=== PATIENT | male | born 1960 | race Caucasian/White ===

== ENCOUNTER 2020-08-19 23:50 | Emergency (ER) | payer OTHER ==
[2020-08-20 00:08] VITALS: TEMP 98.5; BMI 23.6
[2020-08-20 01:59] LABS: BASO % 0.9 % (0-2.0); EOS % 1.5 % (0-4.5); HEMATOCRIT 33.1 % (35.4-49); LYMPH % 18.1 % (8-40); MCH 27.6 pg (25.7-33.7); MCHC 33.2 g/dl (32.0-35.9); MEAN CELL VOLUME 83.1 fl (80-96); MEAN PLT VOLUME 10.1 fl (7.5-11.1); MONO % 12.3 % (3.8-10.2); NEUT % 67.2 % (42.8-82.8); PLATELET COUNT 140 K/MM3 (134-434); RBC 3.98 M/mm3 (4.00-5.60); RDW 13.6 % (11.9-15.9); WHITE BLOOD COUNT 5.2 K/mm3 (4.0-10.0)
[2020-08-20 02:03] LABS: INR 1.04 (0.83-1.09); POTASSIUM 4.1 mmol/L (3.5-5.1); PROTHROMBIN TIME (PATIENT) 12.8 SEC (9.7-13.0)
[2020-08-20 02:05] LABS: CALCIUM 8.9 mg/dL (8.5-10.1)
[2020-08-20 02:06] LABS: ALBUMIN 3.6 g/dl (3.4-5.0); BLOOD UREA NITROGEN 20.3 mg/dL (7-18)
[2020-08-20 02:09] LABS: CREATININE 1.1 mg/dL (0.55-1.3)
[2020-08-20 02:11] LABS: BILIRUBIN,TOTAL 0.3 mg/dL (0.2-1); TOT PROT 6.6 g/dl (6.4-8.2)
[2020-08-20 04:29] VITALS: BP 136/56; PULSE 54
== END 2020-08-20 04:29 | disposition home or self-care (01) ==
LOC: JER 23:50
DX: R55 Syncope and collapse (principal)
CPT/HCPCS: 36415; 70496-TC; 70498-TC; 80053; 85025; 85610; 93005; 93010; 93880-TC; 99284-25